=== PATIENT | female | born 1995 | race Caucasian/White ===

== ENCOUNTER → 2019-06-21 | Outpatient (CLI) | payer BC ==
--- NOTE | 2019-06-22 10:37 | XR ---
Left elbow HISTORY: Trauma and pain 3 views of the left elbow Bone mineralization, joint spaces and alignment are maintained. No evident joint effusion. IMPRESSION: No fracture or dislocation is evident, consider alternate imaging for increased sensitivi ty as indicated.
== END | disposition home or self-care (01) ==
LOC: RADXRMAIN 16:40
PROVIDERS: ATTEND Family Medicine
DX: M79.629 Pain in unspecified upper arm (principal)

== ENCOUNTER → 2020-05-26 | Outpatient (CLI) | payer BC ==
--- NOTE | 2020-06-12 11:57 | EM ---
EVENT MONITOR Patient was monitored between May 26 and May. The rhythm strip revealed a sinus mechanism with episode of sinus tachycardia. No atrial fibrillation was noted. No ventricular ectopic activity was noted. Symptoms of irregular heartbeat, nausea, vomiting did not correlate with any dysrhythmia. OBIE / SHARIF: [id number] /
== END | disposition home or self-care (01) ==
LOC: RADECHMAIN 11:57
PROVIDERS: ATTEND Family Medicine
DX: R00.2 Palpitations (principal)
CPT/HCPCS: 93270

== ENCOUNTER → 2020-08-09 | Outpatient (CLI) | payer OTHER ==
--- NOTE | 2020-08-09 14:14 | XR ---
EXAMINATION TYPE: XR shoulder complete BILAT DATE OF EXAM: 08/09/2020 COMPARISON: NONE HISTORY: Pain TECHNIQUE: Three views are submitted. FINDINGS: The osseous structures are intact. There is no acute fracture or dislocation. Arthropathy of the AC joint.. IMPRESSION: 1. AC joint arthropathy.
--- NOTE | 2020-08-09 14:44 | XR ---
EXAMINATION TYPE: XR cervical spine comp DATE OF EXAM: 08/09/2020 COMPARISON: None HISTORY: Blunt trauma TECHNIQUE: 5 view cervical spine FINDINGS: Incisors overlie the odontoid causing some limitation. There is cervical kyphosis in the up per cervical spine. Vertebral body heights are preserved. Disc heights are preserved. Prevertebral sp carolyn is normal. Posterior spinal lamellar line is intact. Foramen are patent. Spinous processes appear intact. IMPRESSION: 1. Cervical kyphosis which can be related to patient positioning or muscle spasm. 2. No acute osseous abnormality evident.
== END | disposition home or self-care (01) ==
LOC: RADXRMAIN 13:37
PROVIDERS: ATTEND Emergency Medicine
DX: M19.012 Primary osteoarthritis, left shoulder (principal); M19.011 Primary osteoarthritis, right shoulder; M40.202 Unspecified kyphosis, cervical region
CPT/HCPCS: 72050

== ENCOUNTER 2023-01-19 22:03 | Outpatient (CLI) | payer BC ==
[2023-01-19 22:52] VITALS: BP 127/87; PULSE 97; RESP 17; TEMP 96.6
--- NOTE | 2023-01-20 10:19 | P.MSEPDOC ---
Presenting Problems - Arrival Data Date of Arrival on Unit: 01/19/23 Time of Arrival on Unit: 22:03 Mode of Transport: Wheelchair - Complaint OB-Reason for Admission/Chief Complaint: Pain Comment: Left lower abdominal pain. Pt describes pain as sharp and is exacerbated by moving. Medical History - Information : 2 Para: 0 Term: 0 : 0 Abortions: Spontaneous or Elective: 0 Number of Living Children: 0 - Gestational Age Gestational Age by ENMANUEL (wks/days): 33 Weeks and 6 Days Review of Systems - Review of Systems Constitutional: No problems Breast: No problems ENT: No problems Cardiovascular: No problems Respiratory: No problems Gastrointestinal: No problems Genitourinary: No problems Musculoskeletal: No problems Neurological: No problems Skin: No problems Vital Signs - Temperature Temperature: 96.6 F Temperature Source: Temporal Artery Scan - Pulse Right Brachial Pulse Rate: 97 Pulse Assessment Method: Pulse Oximetry - Respirations Respiratory Rate: 17 Oxygen Delivery Method: Room Air O2 Sat by Pulse Oximetry: 97 - Blood Pressure Right Arm Blood Pressure: 127/87 Blood Pressure Mean: 100 Blood Pressure Source: Automatic Cuff Medical Screen Scoring - Assessment - Baby A Baseline FHR: 150 Heart Rate - NICHD Category: Category I (Normal) NST: Reactive Physician Notification - Physician Notified Physician Notified Date: 01/19/23 Physician Notified Time: 22:40 Physician: Demetrice Ardon Order Received: Yes - Notification Comment Comment: Dr. Ardon given report on pt and pt c/o. Cat 1 FHTs, no contractions per pt or. toco. VS WNL. Orders recieved to d/c pt to home and to educate pt on comfort measures. Maternal Triage Index - Non-Urgent/Priority 4 Non-Urgent Priority 4: Yes Criteria Met for Priority 4: Pt c/o of left lower abdominal pain that is sharp and exacerbated by moving. Disposition - Disposition OB Disposition: Discharge to home Discharge Date: 01/19/23 Discharge Time: 22:50 I agree with the RN Medical Screening Exam: Yes Case reviewed; plan agreed upon as documented in EMR&OBIX.: Yes Diagnosis: RELATED CONDITIONS, UNSPECIFIED, THIRD TRIMESTER
== END 2023-01-19 22:50 | disposition home or self-care (01) ==
LOC: FBPOP 22:03
PROVIDERS: ATTEND Obstetrics & Gynecology
DX: O26.893 Other specified pregnancy related conditions, third trimester (principal); R52 Pain, unspecified; Z3A.33 33 weeks gestation of pregnancy; Z88.8 Allergy status to other drugs, medicaments and biological substances
CPT/HCPCS: 59025; 99213

== ENCOUNTER 2023-02-17 16:27 | Outpatient (CLI) | payer BC ==
[2023-02-17 18:08] VITALS: BP 123/82; PULSE 95; RESP 16; TEMP 97
--- NOTE | 2023-02-20 08:32 | P.MSEPDOC ---
Presenting Problems - Arrival Data Date of Arrival on Unit: 02/17/23 Time of Arrival on Unit: 16:27 Mode of Transport: Ambulatory - Complaint OB-Reason for Admission/Chief Complaint: Possible Onset of Labor Medical History - Information : 2 Para: 0 Term: 0 : 0 Abortions: Spontaneous or Elective: 1 Number of Living Children: 0 - Gestational Age Gestational Age by ENMANUEL (wks/days): 38 Weeks and 0 Days - History Comment: having pinching feeling in mid lower abd for last couple of hours. ? contx Review of Systems - Review of Systems Constitutional: No problems Breast: No problems ENT: No problems Cardiovascular: No problems Respiratory: No problems Gastrointestinal: No problems Genitourinary: No problems Musculoskeletal: No problems Neurological: No problems Skin: No problems Vital Signs - Temperature Temperature: 97.0 F Temperature Source: Temporal Artery Scan - Pulse Apical Pulse Rate: 95 Pulse Assessment Method: Automatic Cuff - Respirations Respiratory Rate: 16 Oxygen Delivery Method: Room Air O2 Sat by Pulse Oximetry: 97 - Blood Pressure Right Arm Blood Pressure: 123/82 Blood Pressure Mean: 95 Blood Pressure Source: Automatic Cuff Medical Screen Scoring - Cervical Exam Dilation (cm): 1 Effacement (%): 50 Membranes: Intact - Uterine Contractions Intensity: Mild Resting: Soft to palpation - Assessment - Baby A Baseline FHR: 140 Heart Rate - NICHD Category: Category I (Normal) NST: Reactive Physician Notification - Physician Notified Physician Notified Date: 02/17/23 Physician Notified Time: 17:25 Physician: Demetrice Ardon Maternal Triage Index - Scheduled/Requesting Priority 5 Scheduled/Requesting Priority 5: Yes Criteria Met for Priority 5: ? labor. reactive nst. 1 cm 50% effaced. no srom. Disposition - Disposition OB Disposition: Discharge to home, Written follow up instructions reviewed Discharge Date: 02/17/23 Discharge Time: 17:45 I agree with the RN Medical Screening Exam: Yes Case reviewed; plan agreed upon as documented in EMR&OBIX.: Yes Diagnosis: FALSE LABOR AT OR AFTER 37 COMPLETED WEEKS OF GESTATION
== END 2023-02-17 17:45 | disposition home or self-care (01) ==
LOC: FBPOP 16:27
PROVIDERS: ATTEND Obstetrics & Gynecology
DX: O47.1 False labor at or after 37 completed weeks of gestation (principal); Z3A.38 38 weeks gestation of pregnancy; Z88.1 Allergy status to other antibiotic agents
CPT/HCPCS: 59025; 99213

== ENCOUNTER 2023-03-03 08:07 | Inpatient (IN) | payer BC ==
--- NOTE | 2023-03-04 06:50 | P.HPOB ---
History of Present Illness H&P Date: 03/04/23 Chief Complaint: Postdates induction of labor This patient is a pleasant 27-year-old 2 para 0 female estimated date of confinement 03/03/2023 estimated gestational age 40-2/7 weeks who presents to labor and delivery for requested postdates induction of labor. Patient's care is been complicated by thyroid disease which has been controlled by Dr. Marcos and also fractured her left leg at approximately 28 weeks due to a fall. is otherwise been uncomplicated. Review of Systems Genitourinary: Reports Menstruation: Reports amenorrhea Past Medical History Past Medical History: Thyroid Disorder History of Any Multi-Drug Resistant Organisms: None Reported Past Surgical History: Orthopedic Surgery Additional Past Surgical History / Comment(s): Right ACL repair. Left wrist ganglion cyst Past Anesthesia/Blood Transfusion Reactions: No Reported Reaction Past Psychological History: Anxiety, Depression Smoking Status: Never smoker Past Alcohol Use History: None Reported Past Drug Use History: None Reported Medications and Allergies Home Medications Medication Instructions Recorded Confirmed Type Escitalopram [Lexapro] 10 mg PO DAILY 01/19/23 03/03/23 History Levothyroxine Sodium 1 tab PO ONCE 01/19/23 03/03/23 History Allergies Allergy/AdvReac Type Severity Reaction Status Date / Time cephalexin [From Keflex] AdvReac Rash/Hives Verified 03/03/23 14:08 Exam - OBG Physical Exam Abdomen: bowel sounds normal, no diffuse tenderness, no bruit present, no guarding noted, no hepatomegaly, no splenomegaly, no mass Vulva: both: normal Vagina: normal moisture, no discharge Cervix: no lesion (Cervix in the office is 2 cm), no discharge Uterus: enlarged Results labs show she is B positive, rubella nonimmune, RPR is nonreactive, hepatitis B and C are negative, HIV is nonreactive, Glucola was normal, group B strep was negative, most recent ultrasound done at 35 week showed estimated weight of 5 lbs. 6 oz. Assessment and Plan Assessment: This is a pleasant 27-year-old 2 para 0 female estimated gestational age 40-2/7 weeks who presents for postdates induction of labor. Plan is induction of labor and anticipate vaginal delivery. (1) Post-term , 40-42 weeks of gestation Status: Acute Code(s): O48.0 - POST-TERM SNOMED Code(s): 34912284788347 (2) Elective induction of labor planned Status: Acute Code(s): URY0842 - SNOMED Code(s): 352579484 (3) Rubella non-immune status, antepartum Status: Acute Code(s): O09.899 - SUPERVISION OF OTHER HIGH RISK PREGNANCIES, UNSP TRIMESTER; Z28.39 - OTHER UNDERIMMUNIZATION STATUS SNOMED Code(s): 716811365
[2023-03-05] MEDS ORDERED: TRANEXAMIC 1,000 MG/100ML-NACL 1,000 MG in EMPTY BAG 1 BAG IV PRN ×2 (06:31→15:15)
[2023-03-05] MEDS ORDERED: CARBOPROST TROMETHAMINE 250 MCG/ML 1 ML AMP IM PRN (06:31)
[2023-03-05] MEDS ORDERED: OXYTOCIN 30 UNITS/500 ML NS 30 UNIT in SALINE 1 500ML.BAG IV SCH ×2 (06:31→16:45)
[2023-03-05] MEDS ORDERED: METHYLERGONOVINE 0.2 MG/ML 1 ML AMP IM PRN (06:31)
[2023-03-05] MEDS ORDERED: LIDOCAINE 0.5% (PF) 5 MG/ML (50 ML SDV) SQ PRN (06:31)
[2023-03-05] MEDS ORDERED: TERBUTALINE 1 MG/ML VIAL SQ PRN (06:31)
[2023-03-05] MEDS ORDERED: OXYTOCIN 10 UNIT/ML 1 ML VIAL IM PRN (06:31)
[2023-03-05] MEDS ORDERED: miSOPROStoL 200 MCG TAB PO PRN (06:31)
[2023-03-05] MEDS: LACTATED RINGERS 1,000 ML IV SCH ×4 (06:35→20:37)
[2023-03-05 07:18] LABS: Basophils % (A) 0 %; Eosinophils # (A) 0.2 k/uL (0-0.7); Eosinophils % (A) 2 %; HCT 37.9 % (34.0-46.0); HGB 12.7 gm/dL (11.4-16.0); Lymphocytes # (A) 1.5 k/uL (1.0-4.8); Lymphocytes % (A) 20 %; MCH 30.1 pg (25.0-35.0); MCHC 33.6 g/dL (31.0-37.0); MCV 89.6 fL (80.0-100.0); Mean Platelet Volume 8.7; Monocytes # (A) 0.4 k/uL (0-1.0); Monocytes % (A) 5 %; Neutrophils # (A) 5.7 k/uL (1.3-7.7); Neutrophils % (A) 72 %; Platelet Count 200 k/uL (150-450); RBC 4.22 m/uL (3.80-5.40); RDW 13.6 % (11.5-15.5); WBC 7.9 k/uL (3.8-10.6)
[2023-03-05] MEDS ORDERED: ROPIVACAINE 5 MG/ML 30 ML VIAL ONE (10:41)
[2023-03-05] MEDS ORDERED: fentaNYL (PF) 50 MCG/ML 5 ML AMP ONE (10:41)
[2023-03-05] MEDS ORDERED: SODIUM CHLORIDE 0.9% 250 ML BAG ONE (10:41)
[2023-03-05] MEDS ORDERED: CLINDAMYCIN 600 MG in DEXTROSE 5% IN WATER 50 ML IVPB STA ×2 (15:13)
[2023-03-05] MEDS ORDERED: CITRIC ACID-SODIUM CITRATE 15 ML CUP PO ONE (15:15)
[2023-03-05] MEDS ORDERED: NALBUPHINE 10 MG/ML (10 ML MDV) ONE (15:50)
[2023-03-05] MEDS ORDERED: OXYTOCIN 30 UNITS/500 ML NS BAG IV ONE (15:50)
[2023-03-05] MEDS ORDERED: KETOROLAC 15 MG/ML 1 ML VIAL ONE (15:50)
[2023-03-05] MEDS ORDERED: ONDANSETRON 4 MG/2 ML VIAL ONE (15:50)
[2023-03-05] MEDS ORDERED: MORPHINE SULFATE (PF) 0.3 MG/0.3 ML SYR ONE (15:50)
[2023-03-05] MEDS ORDERED: ONDANSETRON 4 MG/2 ML VIAL IVP PRN (16:39)
[2023-03-05] MEDS ORDERED: NALOXONE 0.4 MG/ML 1 ML VIAL IV PRN (16:39)
[2023-03-05] MEDS ORDERED: LANOLIN CREAM 5 GM TUBE TOPICAL PRN (16:39)
[2023-03-05] MEDS ORDERED: METOCLOPRAMIDE 5 MG/ML 2 ML VIAL IVP PRN (16:39)
[2023-03-05] MEDS ORDERED: SIMETHICONE 80 MG CHEWABLE PO PRN (16:39)
[2023-03-05] MEDS ORDERED: diphenhydrAMINE 25 MG CAP PO PRN (16:39)
[2023-03-05] MEDS ORDERED: diphenhydrAMINE 50 MG/ML 1 ML VIAL IVP PRN (16:39)
[2023-03-05] MEDS ORDERED: MEASLES-MUMPS-RUBELLA VACC/PF 12,500 UNIT/0.5 ML VIAL SQ ONE (16:39)
[2023-03-05] MEDS ORDERED: ZOLPIDEM 5 MG TAB PO PRN (16:39)
[2023-03-05] MEDS ORDERED: HYDROmorphone PCA 10 MG/50 ML BAG IV PRN (16:49)
--- NOTE | 2023-03-05 17:05 | P.OP ---
Date of Procedure: 03/05/23 Preoperative Diagnosis: #1: 40-2/7 week intrauterine . #2: Intrapartum temperature elevation. #3: Category 2 heart tones remote from delivery Postoperative Diagnosis: #1: Same. #2: Meconium-stained fluid. #3: Occiput posterior presentation Procedure(s) Performed: Primary low transverse section Anesthesia: epidural Surgeon: Ajit Paulino Apiculture Teacher #1: Ela Zapien Estimated Blood Loss (ml): 800 Pathology: other (Placenta) Condition: stable Disposition: floor Indications for Procedure: Please see dictated H&P for intimate details of this patient's admission. In brief summary this is a pleasant 27-year-old 2 para 0 female 40-2/7 weeks gestation admitted for postdates induction of labor. On admission patient is 2-3 cm dilated has artificial rupture membranes for clear fluid. Labor is induced with Pitocin per protocol. Patient progresses and gets an epidural at approximately 4 cm dilated. At this time she does begin having some deep variable decelerations that do respond discontinuing the Pitocin and usual resuscitative measures including IV fluids and position changes. Patient then begins having some tachycardia to the 180s to 190s and developed some intrapartum temperature to 100. At this time she does not progress beyond 6 cm and due to my concern for the category II heart tones, I recommended we proceed with delivery. Category II FHT managed following algorithm including i nitiation of corrective measures: Position changes, discontinuing Pitocin, and IV fluids.. With the persistent presence of category II heart tones, a patient-centered huddle was held and the need for an expedited deliver was discussed with the patient. It is our clinical recommendation to proceed with the delivery and after questions were answered to the patient agrees to proceed with the recommended plan. I discussed the surgery and risks and risks of infection, bleeding, possible injury bowel, bladder, vessels, and/or other organs. All the patient's questions are answered and a written consent is obtained. Operative Findings: This is a viable female infant Apgars are 6 and 7 delivery time is 1601 hrs. There was thick meconium stained fluid note the time of delivery, was straight occiput posterior presentation. Infant did grossly appear normal. Description of Procedure: This patient has a Leavitt catheter placed to straight drain. She is subsequently taken to the operating room where the epidural was dosed up for sufficient level of surgery. With an adequate level of anesthesia, she has abdominal prep and drape. Scalpels and taken and a Pfannenstiel skin incision is then made. A second scalpel is taken down to the fascia the fascia scored with a knife. Fascial incision extended bilaterally using the Ambrosio scissors. Fascia is then dissected off the rectus muscles sharply. Rectus muscles are the peritoneum was identified and entered sharply. Peritoneal incision extended superior and inferior without difficulty. Bladder blade is then placed. Bladder peritoneum was taken sharply off the lower uterine segment. Scalpels and taken a Pfannenstiel skin incision is then made. Using a hemostat I into the uterine cavity bluntly and there is loss of thick meconium-stained fluid. Incision is extended bluntly. The is found to be straight occiput posterior presentation. Infant's head is then guided through the incision with fundal pressure delivered. Mouth and nares are bulb suctioned. Multiple Launch [employer]ocket System Crewmember is present for delivery. With more fundal pressure we then deliver the rest this infant's body. This is a viable female Apgars are 6 and 7 delivery time was 1604 hrs. has spontaneous respiration and good cry. The umbilical cord is clamped and cut and the infant is immediately taken over the corrections corporal. With this done the placenta is then manually extracted intact. Uterus is then externalized. Uterine incision is closed using 0 Vicryl running locked fashion 2 layers. Excellent hemostasis is noted. The bladder peritoneum was then reapproximated using a 3-0 Vicryl. Excess fluid is removed from the uterus and pelvis. Uterus, tubes, ovaries appear normal for term gestation. Uterus placed back into the abdomen. The parietal peritoneum was then closed Vicryl running fashion. Rectus muscles reapproximated in 0 Vicryl interrupted fashion. Fascial incision is then closed using 0 PDS. Fascial incision is intact and hemostatic. Subcutaneous tissues and closed using a 3-0 Vicryl. Skin is and closed using tasha. All counts are correct 3. There are no complications. Infant will be taken to level I nursery for observation and treatment and mother's taken to her birthing suite in satisfactory condition.
[2023-03-05] MEDS: CLINDAMYCIN 900 MG in DEXTROSE 5% IN WATER 50 ML IVPB SCH ×2 (20:37)
[2023-03-05] MEDS: ACETAMINOPHEN TAB 500 MG TAB PO SCH (20:38)
[2023-03-05] MEDS: SENNOSIDES-DOCUSATE SODIUM 1 EACH TAB PO SCH (20:38)
[2023-03-06] MEDS: ACETAMINOPHEN TAB 500 MG TAB PO SCH ×4 (06:22→19:33)
[2023-03-06] MEDS: IBUPROFEN 600 MG TAB PO SCH ×4 (06:24→23:30)
[2023-03-06] MEDS: KETOROLAC 15 MG/ML 1 ML VIAL IVP SCH ×2 (06:24→06:33)
[2023-03-06] MEDS: LACTATED RINGERS 1,000 ML IV SCH ×3 (06:24→10:35)
[2023-03-06] MEDS: CLINDAMYCIN 900 MG in DEXTROSE 5% IN WATER 50 ML IVPB SCH ×4 (06:25→08:33)
--- NOTE | 2023-03-06 06:35 | P.PNOBGPC ---
Subjective - Subjective Patient reports: Reports appetite normal, Reports voiding normally, Reports pain well controlled, Reports ambulating normally : doing well, in NICU Objective - Vital Signs Latest vital signs: Vital Signs Temp Pulse Resp BP Pulse Ox 03/06/23 04:00 98.2 F 76 17 87/53 03/06/23 00:00 98.1 F 76 17 121/80 03/05/23 19:59 97.5 F L 88 16 125/79 97 03/05/23 18:33 101 H 16 118/71 98 03/05/23 18:03 100 16 123/66 97 03/05/23 17:33 100 16 123/66 99 03/05/23 17:17 103 H 16 133/77 96 03/05/23 17:03 103 H 16 136/74 100 03/05/23 16:48 113 H 16 150/84 99 03/05/23 16:33 97.1 F L 107 H 16 143/73 97 Intake and Output 03/05/23 03/05/23 03/06/23 14:59 22:59 06:59 Output Total 200 1400 Balance -200 -1400 Output: Urine 200 800 Output, Quantitative 600 Blood Loss Other: Voiding Method Indwelling Catheter Indwelling Catheter - Exam Lungs: bilateral: normal Chest: Normal S1, Normal S2 Extremities: Present: normal Abdomen: Present: normal appearance, soft. Absent: distention, tenderness Incision: Present: normal, dry, intact Uterus: Present: normal, firm Assessment and Plan Assessment: Postoperative day #1. Patient is resting without new complaints. Vital signs are stable she's afebrile. Uterus is firm nontender and her incision is intact and dry. Patient is tolerating clear liquids. Plan today is to advance her diet, discontinue her Leavitt catheter, check a CBC, and we'll discontinue antibiotics pending CBC results. (1) Post-term , 40-42 weeks of gestation Current Visit: No Status: Acute Code(s): O48.0 - POST-TERM SNOMED Code(s): 55713528020676 (2) Elective induction of labor planned Current Visit: No Status: Acute Code(s): LQI0700 - SNOMED Code(s): 954461245 (3) Rubella non-immune status, antepartum Current Visit: No Status: Acute Code(s): O09.899 - SUPERVISION OF OTHER HIGH RISK PREGNANCIES, UNSP TRIMESTER; Z28.39 - OTHER UNDERIMMUNIZATION STATUS SNOMED Code(s): 009514452
[2023-03-06 06:39] LABS: Basophils % (A) 0 %; Eosinophils # (A) 0.1 k/uL (0-0.7); Eosinophils % (A) 1 %; HCT 31.4 % (34.0-46.0); HGB 10.2 gm/dL (11.4-16.0); Lymphocytes # (A) 1.2 k/uL (1.0-4.8); Lymphocytes % (A) 17 %; MCH 29.5 pg (25.0-35.0); MCHC 32.7 g/dL (31.0-37.0); MCV 90.3 fL (80.0-100.0); Mean Platelet Volume 10.7; Monocytes # (A) 0.4 k/uL (0-1.0); Monocytes % (A) 6 %; Neutrophils # (A) 5.2 k/uL (1.3-7.7); Neutrophils % (A) 74 %; Platelet Count 134 k/uL (150-450); RBC 3.47 m/uL (3.80-5.40); RDW 13.7 % (11.5-15.5); WBC 6.9 k/uL (3.8-10.6)
[2023-03-06] MEDS: SENNOSIDES-DOCUSATE SODIUM 1 EACH TAB PO SCH ×2 (08:29→19:38)
[2023-03-06 23:33] VITALS: RESP 16
[2023-03-07] MEDS: ACETAMINOPHEN TAB 500 MG TAB PO SCH ×3 (01:54→15:41)
[2023-03-07] MEDS: IBUPROFEN 600 MG TAB PO SCH ×4 (04:38→22:05)
--- NOTE | 2023-03-07 06:54 | P.PNOBGPC ---
Subjective - Subjective Patient reports: Reports appetite normal, Reports voiding normally, Reports pain well controlled, Reports ambulating normally : doing well Objective - Vital Signs Latest vital signs: Vital Signs Temp Pulse Resp BP Pulse Ox 03/06/23 23:33 16 03/06/23 23:32 97.8 F 91 16 96/62 96 03/06/23 16:00 98.0 F 101 H 18 118/80 03/06/23 12:00 97.4 F L 94 17 120/79 97 03/06/23 08:00 97.9 F 90 16 119/78 99 Intake and Output 03/06/23 03/06/23 03/07/23 14:59 22:59 06:59 Output Total 600 Balance -600 Output: Urine 600 Other: Voiding Method Toilet Toilet Indwelling Catheter Indwelling Catheter # Voids 1 1 2 - Exam Lungs: bilateral: normal Chest: Normal S1, Normal S2 Extremities: Present: normal Abdomen: Present: normal appearance, soft. Absent: distention, tenderness Incision: Present: normal, dry, intact Uterus: Present: normal, firm Assessment and Plan Assessment: Postoperative day #2. Patient is resting without complaints. Vital signs are stable she's afebrile. Uterus is firm nontender and she is having normal lochia. Her incision is intact and dry. CBC yesterday was normal. Plan today is to continue routine postoperative care. Encourage ambulation. Most likely discharge home Friday or Friday depending on her baby gets to go home. (1) Post-term , 40-42 weeks of gestation Current Visit: No Status: Acute Code(s): O48.0 - POST-TERM SN OMED Code(s): 97295913097864 (2) Elective induction of labor planned Current Visit: No Status: Acute Code(s): III1787 - SNOMED Code(s): 010521050 (3) Rubella non-immune status, antepartum Current Visit: No Status: Acute Code(s): O09.899 - SUPERVISION OF OTHER HIGH RISK PREGNANCIES, UNSP TRIMESTER; Z28.39 - OTHER UNDERIMMUNIZATION STATUS SNOMED Code(s): 171827624
[2023-03-07] MEDS: SENNOSIDES-DOCUSATE SODIUM 1 EACH TAB PO SCH ×2 (08:25→20:08)
[2023-03-08] MEDS: ACETAMINOPHEN TAB 500 MG TAB PO SCH ×4 (01:21→15:34)
[2023-03-08] MEDS: IBUPROFEN 600 MG TAB PO SCH ×3 (06:30→20:09)
--- NOTE | 2023-03-08 08:47 | P.DS ---
Providers Date of admission: 03/05/23 06:00 Expected date of discharge: 03/08/23 Attending physician: Ajit Paulino Primary care physician: Stated None Hospital Course: This is a 27-year-old female 2 para 0 who was admitted at 40-2/7 weeks for induction of labor. Please see history and physical for details of patient's admission. She underwent a primary low transverse section on 03/05/2023 and delivered a viable female with scores of 6 at 1 minute and 7 at 5 minutes and infant weight of 6 lbs. 10 oz. Please see dictated operative report for details of surgery. Her postoperative and courses have been uncomplicated. She is pumping her breast milk. Lochia is decreasing. Her pain is fairly well controlled. She is passing flatus but no bowel movement. Baby has been in level I nursery but may be going home today. Vital signs are stable. Abdomen is soft with positive bowel sounds 4. Incision is clean dry and intact with tasha in place. Extremities show negative Homans. Impression is status post primary low transverse section postoperative day #3. Plan is to discharge home today as long as baby is able to go. Routine postoperative and instructions are given. Prescriptions have already been written by Dr. Paulino. She will follow up with him in the office in 1 week for postoperative check and in 6 weeks for a check. [place] will be removed and Steri-Strips placed prior to discharge. She is advised to call the office if she has any further questions or concerns prior to her appointment time. Procedures: Induction of labor Primary low transverse section for delivery of a viable female on 03/05/2023 Patient Condition at Discharge: Stable Plan - Discharge Summary New Discharge Prescriptions: New Ibuprofen [Motrin] 600 mg PO Q6H #40 tab No Action Levothyroxine Sodium 1 tab PO ONCE Escitalopram [Lexapro] 10 mg PO DAILY Discharge Medication List Escitalopram [Lexapro] 10 mg PO DAILY 01/19/23 [History] Levothyroxine Sodium 1 tab PO ONCE 01/19/23 [History] Ibuprofen [Motrin] 600 mg PO Q6H #40 tab 03/07/23 [Rx] Follow up Appointment(s)/Referral(s): Ajit Paulino MD [STAFF PHYSICIAN] - 04/16/23 2:00 pm (Post Op Appointment at 1:30) Patient Instructions/Handouts: (DC) Activity/Diet/Wound Care/Special Instructions: No heavy lifting or strenuous activity for 6 weeks. Please call if any fever, chills, excessive vaginal bleeding, and/or abdominal pain Discharge Disposition: HOME SELF-CARE
[2023-03-08] MEDS: SENNOSIDES-DOCUSATE SODIUM 1 EACH TAB PO SCH ×2 (08:49→20:10)
[2023-03-09] MEDS: ACETAMINOPHEN TAB 500 MG TAB PO SCH ×3 (00:45→10:57)
[2023-03-09] MEDS: IBUPROFEN 600 MG TAB PO SCH ×2 (01:35→05:03)
[2023-03-09 09:58] VITALS: BP 120/80; PULSE 113; TEMP 98.4
== END 2023-03-09 12:15 | disposition home or self-care (01) | DRG 787 ==
LOC: 4FBP 03-05 06:00
PROVIDERS: ADMIT Obstetrics & Gynecology; ATTEND Obstetrics & Gynecology
DX: O48.0 Post-term pregnancy (principal); O75.2 Pyrexia during labor, not elsewhere classified; O99.284 Endocrine, nutritional and metabolic diseases complicating childbirth; E07.9 Disorder of thyroid, unspecified; O99.344 Other mental disorders complicating childbirth; F41.9 Anxiety disorder, unspecified; F32.A Depression, unspecified; O77.0 Labor and delivery complicated by meconium in amniotic fluid; O32.8XX0 Maternal care for other malpresentation of fetus, not applicable or unspecified; O76 Abnormality in fetal heart rate and rhythm complicating labor and delivery; O61.0 Failed medical induction of labor; Z28.310 Unvaccinated for COVID-19; Z88.1 Allergy status to other antibiotic agents; Z87.81 Personal history of (healed) traumatic fracture; Z91.81 History of falling; Z79.899 Other long term (current) drug therapy; Z79.890 Hormone replacement therapy; Z23 Encounter for immunization; Z3A.40 40 weeks gestation of pregnancy; Z37.0 Single live birth
CPT/HCPCS: 85025; 86850; 86900; 86901; 88307; 90707

== ENCOUNTER 2023-03-03 12:42 | Outpatient (CLI) | payer BC ==
[2023-03-03 14:26] VITALS: BP 132/87; PULSE 105; RESP 18; TEMP 97.2
--- NOTE | 2023-03-05 17:12 | P.MSEPDOC ---
Presenting Problems - Arrival Data Date of Arrival on Unit: 03/03/23 Time of Arrival on Unit: 12:42 Mode of Transport: Ambulatory - Complaint OB-Reason for Admission/Chief Complaint: Possible Onset of Labor Comment: contractions through the night, not many this morning. Medical History - Information : 2 Para: 0 Term: 0 : 0 Abortions: Spontaneous or Elective: 1 Number of Living Children: 0 - Gestational Age Gestational Age by ENMANUEL (wks/days): 40 Weeks and 0 Days - History Complications: Other Comment: PPD screen 20 Review of Systems - Review of Systems Constitutional: No problems Breast: No problems ENT: No problems Cardiovascular: No problems Respiratory: No problems Gastrointestinal: No problems Genitourinary: No problems Musculoskeletal: No problems Neurological: No problems Skin: No problems Vital Signs - Temperature Temperature: 97.2 F Temperature Source: Temporal Artery Scan - Pulse Right Pulse Oximetery Pulse Rate: 105 Pulse Assessment Method: Pulse Oximetry - Respirations Respiratory Rate: 18 Oxygen Delivery Method: Room Air O2 Sat by Pulse Oximetry: 98 - Blood Pressure Right Arm Blood Pressure: 132/87 Blood Pressure Mean: 102 Blood Pressure Source: Automatic Cuff Medical Screen Scoring - Cervical Exam Dilation (cm): 1.5 Effacement (%): 50 Station: -2 Membranes: Intact - Uterine Contractions Frequency From (mins): 0 Frequency To (mins): 0 - Assessment - Baby A Baseline FHR: 135 Heart Rate - NICHD Category: Category I (Normal) NST: Reactive Physician Notification - Physician Notified Physician Notified Date: 03/03/23 Physician Notified Time: 13:36 Physician: Ajit Paulino New Order Received: Yes Maternal Triage Index - Maternal Triage Index Presenting for scheduled procedure w/no complaint: No - Stat/Priority 1 Stat Priority 1: No - Urgent/Priority 2 Urgent Priority 2: No - Prompt/Priority 3 Prompt Priority 3: No - Non-Urgent/Priority 4 Non-Urgent Priority 4: Yes Criteria Met for Priority 4: 40 weeks early labor signs/symptoms Disposition - Disposition OB Disposition: Discharge to home Discharge Date: 03/03/23 Discharge Time: 13:50 I agree with the RN Medical Screening Exam: Yes Case reviewed; plan agreed upon as documented in EMR&OBIX.: Yes Diagnosis: FALSE LABOR AT OR AFTER 37 COMPLETED WEEKS OF GESTATION
== END 2023-03-03 13:50 | disposition home or self-care (01) ==
LOC: FBPOP 12:42
PROVIDERS: ATTEND Obstetrics & Gynecology
DX: O47.1 False labor at or after 37 completed weeks of gestation (principal); Z3A.40 40 weeks gestation of pregnancy; Z88.1 Allergy status to other antibiotic agents
CPT/HCPCS: 59025; 99213

== ENCOUNTER 2023-06-16 00:59 | Emergency (ER) | payer BC ==
[2023-06-16 01:12] VITALS: BP 141/89; PULSE 103; RESP 20; TEMP 98.4
[2023-06-16] MEDS ORDERED: ONDANSETRON 4 MG/2 ML VIAL IVP STA (01:26)
[2023-06-16] MEDS ORDERED: SODIUM CHLORIDE 0.9% 1,000 ML IV STA (01:26)
[2023-06-16 02:02] LABS: Basophils % (A) 1 %; Eosinophils # (A) 0.2 k/uL (0-0.7); Eosinophils % (A) 3 %; HCT 39.8 % (34.0-46.0); HGB 13.5 gm/dL (11.4-16.0); Lymphocytes # (A) 1.6 k/uL (1.0-4.8); Lymphocytes % (A) 23 %; MCH 29.4 pg (25.0-35.0); MCHC 33.9 g/dL (31.0-37.0); MCV 86.7 fL (80.0-100.0); Mean Platelet Volume 7.8; Monocytes # (A) 0.3 k/uL (0-1.0); Monocytes % (A) 5 %; Neutrophils # (A) 4.8 k/uL (1.3-7.7); Neutrophils % (A) 68 %; Platelet Count 233 k/uL (150-450); RBC 4.59 m/uL (3.80-5.40); RDW 14.5 % (11.5-15.5); WBC 7.1 k/uL (3.8-10.6)
[2023-06-16 02:06] LABS: Appearance,Urine Clear (Clear); Bilirubin,Urine Negative (Negative); Blood,Urine Negative (Negative); Color,Urine Yellow; Glucose,Urine (UA) Negative (Negative); Ketones,Urine Negative (Negative); Leukocyte Esterase,Urine Negative (Negative); Mucus,Urine Moderate /hpf; Nitrite,Urine Negative (Negative); Protein,Urine 1+ (Negative); RBC,Urine 2 /hpf (0-5); Specific Gravity,Urine 1.029 (1.001-1.035); Squamous Epithelial Cell,Urine 7 /hpf (0-4); Urobilinogen,Urine <2.0 mg/dL (<2.0); WBC,Urine 7 /hpf (0-5)
[2023-06-16 02:29] LABS: ALT 68 U/L (4-34); AST 49 U/L (14-36); African American GFR (CKD) >90 (>60 ml/min/1.73 sqM); Albumin 4.4 g/dL (3.5-5.0); Alkaline Phosphatase 97 U/L (38-126); Amylase 52 U/L (30-110); Anion Gap 9 mmol/L; Blood Urea Nitrogen 11 mg/dL (7-17); Calcium 9.4 mg/dL (8.4-10.2); Carbon Dioxide 24 mmol/L (22-30); Chloride 106 mmol/L (98-107); Glucose 113 mg/dL (74-99); Lipase 75 U/L (23-300); Non-African American GFR(CKD) >90 (>60 ml/min/1.73 sqM); Potassium 4.3 mmol/L (3.5-5.1); Sodium 139 mmol/L (137-145); Total Bilirubin 0.6 mg/dL (0.2-1.3); Total Protein 7.4 g/dL (6.3-8.2)
--- NOTE | 2023-06-16 03:36 | ED ---
General Adult HPI - General Chief complaint: Nausea/Vomiting/Diarrhea Stated complaint: Vomiting Time Seen by Provider: 06/16/23 03:23 Source: patient Mode of arrival: ambulatory Limitations: no limitations - History of Present Illness Initial comments: 27-year-old female presenting to the ED with a chief complaint of nausea and vomiting. Per patient, today onset of headache, nausea, vomiting area patient denies any abdominal pain. No changes in bowel or bladder habits. No chest pain or shortness of breath. No fever or chills. No other complaints. - Related Data Home Medications Medication Instructions Recorded Confirmed Escitalopram [Lexapro] 10 mg PO DAILY 01/19/23 03/05/23 Levothyroxine Sodium 1 tab PO ONCE 01/19/23 03/05/23 Previous Rx's Medication Instructions Recorded Ibuprofen [Motrin] 600 mg PO Q6H #40 tab 03/07/23 Allergies Allergy/AdvReac Type Severity Reaction Status Date / Time cephalexin [From Keflex] AdvReac Rash/Hives Verified 06/16/23 01:11 Review of Systems ROS Statement: Those systems with pertinent positive or pertinent negative responses have been documented in the HPI. ROS Other: All systems not noted in ROS Statement are negative. Past Medical History Past Medical History: Thyroid Disorder History of Any Multi-Drug Resistant Organisms: None Reported Past Surgical History: Orthopedic Surgery Additional Past Surgical History / Comment(s): 2010 Right ACL repair. 2006 Left wrist ganglion cyst Past Anesthesia/Blood Transfusion Reactions: No Reported Reaction Past Psychological History: Anxiety, Depression Smoking Status: Never smoker Past Alcohol Use History: None Reported Past Drug Use History: None Reported - Past Family History Sister(s) Family Medical History: Diabetes Mellitus General Exam Limitations: no limitations General appearance: alert, in no apparent distress ( resting comfortably in the waiting room on her laptop doing work) ENT exam: Present: mucous membranes moist Neck exam: Present: normal inspection Respiratory exam: Present: normal lung sounds bilaterally Cardiovascular Exam: Present: regular rate, normal rhythm GI/Abdominal exam: Present: soft (No tenderness to palpation. No rebound guarding or rigidity.) Neurological exam: Present: alert, oriented X3 Skin exam: Present: warm, dry Course Vital Signs 06/16/23 01:09 Temperature 98.4 F Pulse Rate 103 H Respiratory 20 Rate Blood Pressure 141/89 O2 Sat by Pulse 95 Oximetry Medical Decision Making - Medical Decision Making Was pt. sent in by a medical professional or institution (, [facility], ARTIST'S REPRESENTATIVE, urgent care, hospital, or [facility]...) When possible be specific @ -No Did you speak to anyone other than the patient for history (EMS, parent, family, police, friend...)? What history was obtained from this source @ -No Did you review nursing and triage notes (agree or disagree)? Why? @ -I reviewed and agree with nursing and triage notes Were old charts reviewed (outside hosp., previous admission, EMS record, old EKG, old radiological studies, urgent care reports/EKG's, [facility] records)? Report findings @ -No old charts were reviewed Differential Diagnosis (chest pain, altered mental status, abdominal pain women, abdominal pain men, vaginal bleeding, weakness, fever, dyspnea, syncope, headache, dizziness, GI bleed, back pain, seizure, CVA, palpatations, mental health, musculoskeletal)? @ -Differential Abdominal Pain Women: Appendicitis, Cholecystitis, diverticulosis, ischemic bowel, pancreatitis, hepatitis, UTI, gastroenteritis, AAA, incarcerated hernia, bowel obstruction, constipation, inflammatory bowel, hepatitis, peptic ulcer disease, splenic infarction, perforated viscus, vulvitis, ovarian torsion, PID, kidney stone, placenta abruption, this is not meant to be an all-inclusive list EKG interpreted by me (3pts min.). @ -None X-rays interpreted by me (1pt min.). @ -None done CT interpreted by me (1pt min.). @ -None done U/S interpreted by me (1pt. min.). @ -None done What testing was considered but not performed or refused? (CT, X-rays, U/S, labs)? Why? @ -None What meds were considered but not given or refused? Why? @ -None Did you discuss the management of the patient with other professionals (professionals i.e. , [facility], ARTIST'S REPRESENTATIVE, lab, RT, psych nurse, licensed social worker, retail merchandiser technician, teacher, air intelligence officer, pillowcase folder)? Give summary @ -No Was smoking cessation discussed for >3mins.? @ -No Was critical care preformed (if so, how long)? @ -No Were there social determinants of health that impacted care today? How? (Homel essness, low income, unemployed, alcoholism, drug addiction, transportation, low edu. Level, literacy, decrease access to med. care, intermediate, rehab)? @ -No Was there de-escalation of care discussed even if they declined (Discuss DNR or withdrawal of care, Hospice)? DNR status @ -No What co-morbidities impacted this encounter? (DM, HTN, Smoking, COPD, CAD, Cancer, CVA, ARF, Chemo, Hep., AIDS, mental health diagnosis, sleep apnea, morbid obesity)? @ -None Was patient admitted / discharged? Hospital course, mention meds given and route, prescriptions, significant lab abnormalities, going to OR and other pertinent info. @ -Discharge 19-year-old female presenting to the ED with 1 day history of headache, nausea, vomiting. Denies any other symptoms at this time. Laboratory studies reviewed. CBC unremarkable. Chemistry panel unremarkable. UA shows no evidence of infection. Urine hCG negative. Serology panel negative. Should provided IV fluids and Zofran. Patient at this time reports feeling significantly better. Since likely viral in nature. Patient discharged home in stable condition with prescription for Zofran. Discussed return precautions with patient who verbalizes agreement. Undiagnosed new problem with uncertain prognosis? @ -No Drug Therapy requiring intensive monitoring for toxicity (Heparin, Nitro, Insulin, Cardizem)? @ -No Were any procedures done? @ -No Diagnosis/symptom? @ -Gastroenteritis Acute, or Chronic, or Acute on Chronic? @ -Acute Uncomplicated (without systemic symptoms) or Complicated (systemic symptoms)? @ -Uncomplicated Side effects of treatment? @ -No Exacerbation, Progression, or Severe Exacerbation? @ -No Poses a threat to life or bodily function? How? (Chest pain, [place], [place], pneumonia, PE, COPD, DKA, ARF, appy, cholecystitis, CVA, Diverticulitis, Homicidal, Suicidal, threat to staff... and all critical care pts) @ -No - Lab Data Result diagrams: 06/16/23 01:36 06/16/23 01:36 Lab Results 06/16/23 06/16/23 06/16/23 Range/Units : 01:36 01:36 WBC 7.1 (3.8-10.6) k/uL RBC 4.59 (3.80-5.40) m/uL Hgb 13.5 (11.4-16.0) gm/dL Hct 39.8 (34.0-46.0) % MCV 86.7 (80.0-100.0) fL MCH 29.4 (25.0-35.0) pg MCHC 33.9 (31.0-37.0) g/dL RDW 14.5 (11.5-15.5) % Plt Count 233 (150-450) k/uL MPV 7.8 Neutrophils % 68 % Lymphocytes % 23 % Monocytes % 5 % Eosinophils % 3 % Basophils % 1 % Neutrophils # 4.8 (1.3-7.7) k/uL Lymphocytes # 1.6 (1.0-4.8) k/uL Monocytes # 0.3 (0-1.0) k/uL Eosinophils # 0.2 (0-0.7) k/uL Basophils # 0.0 (0-0.2) k/uL Sodium 139 (137-145) mmol/L Potassium 4.3 (3.5-5.1) mmol/L Chloride 106 (98-107) mmol/L Carbon Dioxide 24 (22-30) mmol/L Anion Gap 9 mmol/L BUN 11 (7-17) mg/dL Creatinine 0.62 (0.52-1.04) mg/dL Est GFR (CKD-EPI)AfAm >90 (>60 ml/min/1.73 sqM) Est GFR (CKD-EPI)NonAf >90 (>60 ml/min/1.73 sqM) Glucose 113 H (74-99) mg/dL Calcium 9.4 (8.4-10.2) mg/dL Total Bilirubin 0.6 (0.2-1.3) mg/dL AST 49 H (14-36) U/L ALT 68 H (4-34) U/L Alkaline Phosphatase 97 (38-126) U/L Total Protein 7.4 (6.3-8.2) g/dL Albumin 4.4 (3.5-5.0) g/dL Amylase 52 (30-110) U/L Lipase 75 (23-300) U/L Urine Color Yellow Urine Appearance Clear (Clear) Urine pH 7.0 (5.0-8.0) Ur Specific [place] 1.029 (1.001-1.035) Urine Protein 1+ H (Negative) Urine Glucose (UA) Negative (Negative) Urine Ketones Negative (Negative) Urine Blood Negative (Negative) Urine Nitrite Negative (Negative) Urine Bilirubin Negative (Negative) Urine Urobilinogen <2.0 (<2.0) mg/dL Ur Leukocyte Esterase Negative (Negative) Urine RBC 2 (0-5) /hpf Urine WBC 7 H (0-5) /hpf Ur Squamous Epith Cells 7 H (0-4) /hpf Urine Mucus Moderate H (None) /hpf Urine HCG, Qual (Not Detectd) Influenza Type A (PCR) (Not Detectd) Influenza Type B (PCR) (Not Detectd) RSV (PCR) (Not Detectd) SARS-CoV-2 (PCR) (Not Detectd) 06/16/23 06/16/23 Range/Units 01:50 01:50 WBC (3.8-10.6) k/uL RBC (3.80-5.40) m/uL Hgb (11.4-16.0) gm/dL Hct (34.0-46.0) % MCV (80.0-100.0) fL MCH (25.0-35.0) pg MCHC (31.0-37.0) g/dL RDW (11.5-15.5) % Plt Count (150-450) k/uL MPV Neutrophils % % Lymphocytes % % Monocytes % % Eosinophils % % Basophils % % Neutrophils # (1.3-7.7) k/uL Lymphocytes # (1.0-4.8) k/uL Monocytes # (0-1.0) k/uL Eosinophils # (0-0.7) k/uL Basophils # (0-0.2) k/uL Sodium (137-145) mmol/L Potassium (3.5-5.1) mmol/L Chloride (98-107) mmol/L Carbon Dioxide (22-30) mmol/L Anion Gap mmol/L BUN (7-17) mg/dL Creatinine (0.52-1.04) mg/dL Est GFR (CKD-EPI)AfAm (>60 ml/min/1.73 sqM) Est GFR (CKD-EPI)NonAf (>60 ml/min/1.73 sqM) Glucose (74-99) mg/dL Calcium (8.4-10.2) mg/dL Total Bilirubin (0.2-1.3) mg/dL AST (14-36) U/L ALT (4-34) U/L Alkaline Phosphatase (38-126) U/L Total Protein (6.3-8.2) g/dL Albumin (3.5-5.0) g/dL Amylase (30-110) U/L Lipase (23-300) U/L Urine Color Urine Appearance (Clear) Urine pH (5.0-8.0) Ur Specific [place] (1.001-1.035) Urine Protein (Negative) Urine Glucose (UA) (Negative) Urine Ketones (Negative) Urine Blood (Negative) Urine Nitrite (Negative) Urine Bilirubin (Negative) Urine Urobilinogen (<2.0) mg/dL Ur Leukocyte Esterase (Negative) Urine RBC (0-5) /hpf Urine WBC (0-5) /hpf Ur Squamous Epith Cells (0-4) /hpf Urine Mucus (None) /hpf Urine HCG, Qual Not Detected (Not Detectd) Influenza Type A (PCR) Not Detected (Not Detectd) Influenza Type B (PCR) Not Detected (Not Detectd) RSV (PCR) Not Detected (Not Detectd) SARS-CoV-2 (PCR) Not Detected (Not Detectd) Disposition Clinical Impression: Gastroenteritis Disposition: HOME SELF-CARE Condition: Good Instructions (If sedation given, give patient instructions): Acute Nausea and Vomiting (ED) Additional Instructions: Please return to the Emergency Department if symptoms worsen or any other concerns. Please follow up with her primary care provider Is patient prescribed a controlled substance at d/c from ED?: No Referrals: None,Stated [Primary Care Provider] - 1-2 days Time of Disposition: 03:41
[2023-06-16] MEDS ORDERED: ONDANSETRON 4 MG ODT STARTER PACK 2 TAB BTL PO STA (03:56)
== END 2023-06-16 04:05 | disposition home or self-care (01) ==
LOC: EC 00:59
DX: K52.9 Noninfective gastroenteritis and colitis, unspecified (principal); E07.9 Disorder of thyroid, unspecified; F41.9 Anxiety disorder, unspecified; F32.A Depression, unspecified; Z79.890 Hormone replacement therapy; Z79.899 Other long term (current) drug therapy; Z88.1 Allergy status to other antibiotic agents; Z20.822 Contact with and (suspected) exposure to COVID-19
CPT/HCPCS: 36415; 80053; 82150; 83690; 85025; 81001; 81025; 87636; 96374; 96361 ×2; 99283; J2405; S0119

== ENCOUNTER → 2024-04-05 | Outpatient (CLI) | payer BC ==
[2024-04-06 03:01] LABS: Basophils # (A) 0.04 X 10*3/uL (0.00-0.10); Basophils % (A) 0.5 %; Eosinophils # (A) 0.43 X 10*3/uL (0.04-0.35); Eosinophils % (A) 5.9 %; HCT 42.3 % (37.2-46.3); HGB 13.8 g/dL (12.0-15.0); Lymphocytes # (A) 2.08 X 10*3/uL (0.90-5.00); Lymphocytes % (A) 28.3 %; MCH 30.8 pg (27.0-32.0); MCHC 32.6 g/dL (32.0-37.0); MCV 94.4 FL (80.0-97.0); Mean Platelet Volume 10.2 FL (9.5-12.2); Monocytes % (A) 6.8 %; NRBC Per 100 WBC 0 X 10*3/uL (0.00-0.01); Neutrophils # (A) 4.27 X 10*3/uL (1.80-7.70); Neutrophils % (A) 58.2 %; Platelet Count 261 X 10*3/uL (140-440); RBC 4.48 X 10*6/uL (4.10-5.20); RDW 13.2 % (11.5-14.5); WBC 7.34 X 10*3/uL (4.50-10.00)
[2024-04-06 04:10] LABS: Thyroid Peroxidase Antibodies 67.9 U/mL (0.0-33.0)
[2024-04-06 04:37] LABS: ALT 29 U/L (8-44); AST 30 U/L (13-35); Albumin 4.5 g/dL (3.8-4.9); Albumin/Globulin Ratio 1.67 Ratio (1.60-3.17); Alkaline Phosphatase 94 U/L (41-126); BUN/Creat Ratio 12.56 Ratio (12.00-20.00); Blood Urea Nitrogen 11.3 mg/dL (9.0-27.0); Calcium 9.4 mg/dL (8.7-10.3); Carbon Dioxide 22.1 mmol/L (21.6-31.8); Chloride 106 mmol/L (96-109); Chol/HDL Ratio 3.13 Ratio; Globulin 2.7 g/dL (1.6-3.3); Glucose 88 mg/dL (70-110); HCG,Quantitative Serum <3.0 mIU/mL (0.0-6.0); LDL Cholesterol,Calculated 108.4 mg/dL (0.0-131.0); Potassium 4.6 mmol/L (3.5-5.5); Sodium 140 mmol/L (135-145); Total Bilirubin 0.3 mg/dL (0.3-1.2); Total Protein 7.2 g/dL (6.2-8.2)
[2024-04-06 05:10] LABS: Insulin Level 27.1 mIU/mL (3.0-25.0)
== END | disposition home or self-care (01) ==
LOC: LABPRL 16:17
PROVIDERS: ATTEND Physician Assistant
DX: E66.9 Obesity, unspecified (principal); F33.1 Major depressive disorder, recurrent, moderate; F41.1 Generalized anxiety disorder; Z68.37 Body mass index [BMI] 37.0-37.9, adult
CPT/HCPCS: 80053; 80061; 82306; 82607; 82746; 83036; 83525; 84443; 84702; 85025; 86376; 86800

== ENCOUNTER → 2024-09-08 | Outpatient (CLI) | payer BC ==
[2024-09-09 01:48] LABS: Prolactin 23.5 ng/mL (2.800-29.200); T4, Free (Free Thyroxine) 0.97 ng/dL (0.80-1.80); Testosterone 24.9 ng/dL (9.01-47.94)
== END | disposition home or self-care (01) ==
LOC: LABWHC1 15:53
PROVIDERS: ATTEND Internal Medicine
DX: N92.6 Irregular menstruation, unspecified (principal); E03.9 Hypothyroidism, unspecified; L68.0 Hirsutism
CPT/HCPCS: 36415; 82533; 82627; 84146; 84402; 84403; 84439; 84443